=== PATIENT | female | born 1950 | race Two or more races ===

== ENCOUNTER 2025-07-23 03:14 | Emergency (ER) | payer MEDICARE ==
[~2025-07-23] VITALS: Ht 149.9 cm; Wt 51.0 kg
[~2025-07-23 03:14] MED LIST: ALB0.5UD IH; ALBU8HFA INH; METO50TA16 PO; MULT-1085 PO; PANT-47 PO; ZINC57OI3 TOP
--- NOTE | 2025-07-23 03:24 | Physician Documentation ---
History of Present Illness General Stated Complaint: TRANSFER A ALS Time Seen by MD: 03:18 History of Present Illness Initial Comments The patient is a 74-year-old female who was recently admitted to our facility and then transferred to [facility] for respiratory failure. The patient was treated with antibiotics and our facility and also had a troponin elevation. Patient was on the ventilator and became difficult to ventilate with oxygen saturations dropping into the 60s and requiring suction during this period of time the patient became verbally unresponsive hand somewhat catatonic. This episode lasted approximately 20 minutes. The patient has since regained consciousness she is following simple commands and was brought to the emergency room by EMS for further evaluation. Medication Reconciliation Allergies: Coded Allergies: No Known Allergies (Unverified , 07/19/25) Scheduled Metoprolol Tartrate (Metoprolol Tartrate), 0.5 TAB PO Q12H, (Reported) Multivitamin (Multi Vitamin Daily), 1 TAB PO DAILY, (Reported) Pantoprazole Sodium (PROTONIX tablet), 1 TAB PO DAILY, (Reported) Scheduled PRN Albuterol Sulfate Nebs* (Proventil Nebs*), 2.5 MG IH Q8H PRN for SOB or wheezing, (Reported) Zinc Oxide (Desitin), 1 APPLIC TOP DAILY PRN for SORES, (Reported) albuterol inhaler (Pro-Air Inhaler), 2 PUFFS INH Q4HPRN PRN for wheezing, (Reported) Discontinued Medications Acetylcysteine (H-Rlvrvk-r-Cysteine), 2 CAP PO Q12H, (Reported) Discontinued Reason: patient no longer taking Diazepam* (Valium*), 1-2 TAB PO Q8H PRN for muscle spasms, (Reported) Discontinued Reason: patient no longer taking Enoxaparin Sodium* (Lovenox*), 100 MG SQ BID, (Reported) Discontinued Reason: patient no longer taking Esomeprazole Mag Trihydrate* (Nexium*), 1 CAP PO DAILY, (Reported) Discontinued Reason: patient no longer taking Ferrous Sulfate* (Ferrous Sulfate*), 1 TAB PO BID, (Reported) Discontinued Reason: patient no longer taking Hydromorphone Hcl* (Dilaudid*), 1 TAB PO Q12H PRN PRN for pain, (Reported) Discontinued Reason: patient no longer taking Ipratropium/Albuterol Sulfate (Duoneb 2.5-0.5 Mg/3 Ml Soln), 1 VIAL NEB Q12H, (Reported) Discontinued Reason: patient no longer taking Mupirocin* (Bactroban*), 1 APPLIC TOP Q8H, (Reported) Discontinued Reason: patient no longer taking Nystatin/Triamcin Cream* (Mycolog II Cream*), 1 APPLIC TOP Q12H, (Reported) Discontinued Reason: patient no longer taking levothyroxine sodium* (Synthroid*), 1 TAB PO DAILY, (Reported) Discontinued Reason: patient no longer taking Review of Systems Unable to obtain complete ROS: intubated Physical Exam Physical Exam Physical Exam VITALS: Reviewed and as above. GENERAL: Alert, mild respiratory distress HEENT: Normocephalic, atraumatic, PERRL, EOMI, dry mucosa, no erythema RESPIRATORY: Markedly diminished breath sounds with rhonchi throughout CHEST: No accessory muscle use, no retractions CV: Regular rate, rhythm, no edema, no murmur, No: JVD GI: Soft, non-tender, bowels sounds present, no rebound, guarding, or rigidity BACK: No CVA tenderness, or swelling MUSCULOSKELETAL: No deformities, no edema SKIN: Warm and dry, no rash NEURO: Moves all extremities can follows simple commands Progress Results/Orders Results/Orders Completed Orders - YING HARLEY MD Hs Troponin I W Calculations (07/23/25 07:21) Medications Received in ER Medications (Trade) Dose Ordered Sig/Liz Route PRN Reason Start Time Stop Time Status Last Admin Dose Admin (Zofran 4mg/2ml vial) 4 mg ONCE ONCE IV 07/23/25 03:55 07/23/25 04:00 DC 07/23/25 04:03 4 MG (0.9% sodium chloride (NS) 1000ml IV soln) 1,000 ml ONCE ONCE IVB 07/23/25 04:45 07/23/25 04:51 DC 07/23/25 04:55 1,000 ML Vital Signs 07/23/25 07/23/25 07/23/25 07/23/25 03:18 03:34 03:37 03:42 Temp 97.5 Pulse 65 49 52 Resp 14 24 23 B/P (MAP) 138/57 126/22 (56) Pulse Ox 100 100 100 O2 Flow Rate 15.0 FiO2 100 8/25/25 8/25/25 8/25/25 8/25/25 04:07 04:27 04:33 04:56 Temp 97.5 97.5 Pulse 59 53 Resp 24 24 B/P (MAP) 84/43 (57) 93/48 (63) Pulse Ox 100 O2 Delivery Ventilator+ O2 Flow Rate 15.0 15.0 FiO2 100 50 100 100 07/23/25 07/23/25 07/23/25 07/23/25 04:58 04:59 05:25 06:30 Temp 97.5 97.5 97.5 97.6 Pulse 47 46 50 51 Resp 24 24 24 24 B/P (MAP) 78/42 (54) 95/48 (64) 104/50 (68) 120/46 (70) Pulse Ox 94 100 100 100 O2 Flow Rate 15.0 15.0 15.0 FiO2 100 100 100 50 07/23/25 07/23/25 07/23/25 07/23/25 06:31 07:00 07:10 07:29 Pulse 51 51 50 Resp 13 24 20 20 B/P (MAP) 128/43 (71) 110/48 (68) Pulse Ox 100 100 100 FiO2 50 45 07/23/25 07/23/25 07:30 07:38 Temp 98.7 Pulse 50 50 Resp 20 13 B/P (MAP) 110/48 (68) 110/48 Pulse Ox 100 100 FiO2 40 Laboratory Tests Test 07/23/25 03:48 07/23/25 04:13 07/23/25 04:18 07/23/25 07:54 CBC Comment Sodium Level 137 Potassium Level 5.0 Chloride Level 100 Carbon Dioxide Level 35.9 H Anion Gap 1 L Blood Urea Nitrogen 21 H Creatinine 0.55 Estimated GFR/1.73 m2 > 90 BUN/Creatinine Ratio 38.2 H Glucose Level 150 H Calcium Level 8.9 Magnesium Level 2.1 Troponin I High Sensitivity 56 *H 50 Pro-B-Type Natriuretic Peptide 4319 H Albumin 3.0 L Procalcitonin 0.21 Chemistry Comments White Blood Count 6.7 Red Blood Count 2.63 L Hemoglobin 7.9 L Hematocrit 25.1 L Mean Corpuscular Volume 95.3 Mean Corpuscular Hemoglobin 30.1 Mean Corpuscular Hemoglobin Concent 31.6 L Red Cell Distribution Width 16.6 H Platelet Count 241 Mean Platelet Volume 8.8 Neutrophils (%) (Auto) 85.3 H Lymphocytes (%) (Auto) 3.6 L Monocytes (%) (Auto) 8.1 Eosinophils (%) (Auto) 2.3 Basophils (%) (Auto) 0.7 Neutrophils # (Auto) 5.7 Lymphocytes # (Auto) 0.2 L Monocytes # (Auto) 0.5 Eosinophils # (Auto) 0.2 Basophils # (Auto) 0.0 Blood Gas Specimen Type Arterial Blood Gas Puncture Site Rr O2 Saturation 99.7 H Arterial Blood pH (Temp corrected) 7.321 L Arterial Blood pCO2 (Temp correct) 59.8 H Arterial Blood pO2 (Temp corrected) 486.1 *H Arterial Blood PO2/FiO2 Ratio 4.86 Arterial Blood HCO3 30.2 H Arterial Blood Base Excess 3.3 H Arterial Blood Oxyhemoglobin 99.4 H Arterial Blood Carboxyhemoglobin 0.3 L Arterial Blood Methemoglobin 0.0 Arterial Blood Deoxyhemoglobin 0.3 Ovi Test Modified Blood Gas Hemoglobin 8.8 L Blood Gas Temperature 37.0 Blood Gas Set Respiration Rate 24 Blood Gas Modality Prvc FiO2 100.0 Blood Gas Tidal Volume 350 Blood Gas PEEP 5 Blood Gas Critical Value Called To Md padilla Troponin I High Sens Percent Delta 10 Troponin I Hi Sens Absolute Change -6 Medical Decision Making Findings The patient is 12 lead EKGs interpreted as a sinus rhythm a sinus bradycardia with a normal axis patient has marked T-wave inversions in V1 through V3 and other nonspecific ST abnormalities the impression is an abnormal EKG patient also has slight right axis deviation the EKG was interpreted by me time of the EKG was 0320 Patient's respiratory distress has resolved. Patient had a mucus plug and received suctioning. Patient needs returned to baseline now. There was no indication for admission. Patient has a mildly elevated troponin. However the patient always has elevated troponins. Patient is stable for discharge back to [facility]. Patient's initial troponin was 56 just above normal. Second troponin was 50 which is normal. Departure Impression: Primary Impression: Acute respiratory failure Qualified Codes: J96.02 - Acute respiratory failure with hypercapnia Discharge Instructions: Shortness of Breath, Adult Referrals: NO PRIMARY CARE PROVIDER (PCP) Signature Scribe Signature: . Attestation: . DEJA VASQUEZ MD Jul 23, 2025 03:24 YING HARLEY MD Jul 23, 2025 08:24
[2025-07-23 03:42] VITALS: PULSE 52; RESP 23; O2SAT 100
[2025-07-23] MEDS: ondansetron/PF 4mg/2ml inj IV ONE (04:03)
--- NOTE | 2025-07-23 04:06 | RADIOLOGY REPORT ---
CHEST RADIOGRAPH Indication: SEPSIS Technique: 1 view Comparison: DI CHEST,SINGLE VIEW on DOS: 07/22/25, DI CHEST,SINGLE VIEW on DOS: 07/19/25 FINDINGS: Lines and Tubes: Unchanged tracheostomy tube. Lungs/Pleura: Persistent near-complete opacification of the right chest with persistent cystic appear ing lucencies. Similar mixed opacities throughout the left lung. No pneumothorax or large pleural e ffusion. Cardiomediastinum: Obscured without evident change. Other: No other change. IMPRESSION: 1. No significant change from the previous day. Persistent near complete right lung opacification.
[2025-07-23 04:22] LABS: CREATININE 0.55 MG/DL (0.40-0.90); PRO BRAIN NATRIURETIC PEPTIDE 4319 PG/ML (0-125); TOTAL CARBON DIOXIDE 35.9 MMOL/L (24-32); eCRCL 62 ML/MIN; eGFR > 90 ML/MIN
[2025-07-23 04:22] LABS: ABG BASE EXCESS 3.3 mmol/L (-2.0-3.0); ABG HCO3 30.2 mmol/L (21.0-28.0); ABG OXYGEN SATURATION 99.7 % (94.0-98.0); ABG PCO2 (T) 59.8 mmHg (32.0-45.0); ABG PH (T) 7.321 (7.350-7.450); ABG PO2 (T) 486.1 mmHg (83.0-108.0); ALLEN'S TEST Modified; FCOHb 0.3 % (0.5-1.5); FHHb 0.3 % (0.0-5.0); FIO2 100.0 mmHg/%; FMetHb 0.0 % (0.0-1.5); FO2Hb 99.4 % (94.0-98.0); MODE PRVC; PATIENT TEMPERATURE 37.0; PEEP 5 cm H2O; RESPIRATORY RATE 24 b/min; TIDAL VOLUME 350 mL; TOTAL HEMOGLOBIN 8.8 G/dl (12.0-16.0)
[2025-07-23 04:45] LABS: MEAN PLATELET VOLUME 8.8 FL (7.4-10.4); RED CELL DISTRIBUTION WIDTH 16.6 % (11.5-14.5)
[2025-07-23] MEDS: normal saline 1000ML IV soln IVB ONE (04:55)
--- NOTE | 2025-07-23 05:44 | ELECTROCARDIOGRAPH REPORT ---
[facility] Test Date: 2025-07-23 Test Time: 03:20:55 Pat Name: CLAUDIA LINK Department: EMERGENCY ROOM Room: Gender: F [employer] Machine Operator: : 1950 Requested By: DEJA VASQUEZ Order Number: [id number] Reading MD: Measurements Intervals [place] Rate: 58 P: -49 TX: 213 QRS: 107 QRSD: 96 T: 56 QT: 456 QTc: 448 Interpretive Statements Sinus or ectopic atrial bradycardia Borderline prolonged TX interval Right axis deviation Abnormal T, probable ischemia, anterior leads Please click the below link to view image of tracing.
[2025-07-23 07:10] VITALS: PULSE 51; RESP 20; O2SAT 100
[2025-07-23 07:38] VITALS: BP 110/48; PULSE 50; RESP 13; TEMP 98.7; O2SAT 100
== END 2025-07-23 08:37 ==
LOC: ER 03:15
DX: J96.00 Acute respiratory failure, unspecified whether with hypoxia or hypercapnia (principal); Z79.899 Other long term (current) drug therapy
CPT/HCPCS: 36415; 36600; 71045; 80048; 82803; 83735; 83880; 84145; 84484; 85018; 85025; 87070; 93005; 96361; 96374; 99285; J2405; J7030; 94002; 94003; 94760

== ENCOUNTER 2025-07-24 08:33 | Emergency (ER) | payer MEDICARE ==
[~2025-07-24] VITALS: Ht 160 cm; Wt 39.1 kg
--- NOTE | 2025-07-24 08:51 | Physician Documentation ---
History of Present Illness ~ Chief Complaint: Abnormal Lab(s) Stated Complaint: ALOC Time Seen by MD: 08:39 HPI 74-year-old female, brought in by EMS from a care facility, with altered mentation and an abnormal ABG The patient reportedly has a trach and is vent dependent. She was altered earlier, and they did an ABG that showed she was retaining CO2. Reportedly has been here in the hospital recently for an NSTEMI, and then was here yesterday with similar symptoms but was treated and discharged. Here in the ED, the patient does appear awake, and attempts to answer my questions. She is on a ventilator. History is somewhat limited at this time Medication Reconciliation Allergies: Coded Allergies: No Known Allergies (Unverified , 07/24/25) Scheduled Metoprolol Tartrate (Metoprolol Tartrate), 0.5 TAB PO Q12H, (Reported) Multivitamin (Multi Vitamin Daily), 1 TAB PO DAILY, (Reported) Pantoprazole Sodium (PROTONIX tablet), 1 TAB PO DAILY, (Reported) Scheduled PRN Albuterol Sulfate Nebs* (Proventil Nebs*), 2.5 MG IH Q8H PRN for SOB or wheezing, (Reported) Zinc Oxide (Desitin), 1 APPLIC TOP DAILY PRN for SORES, (Reported) albuterol inhaler (Pro-Air Inhaler), 2 PUFFS INH Q4HPRN PRN for wheezing, (Reported) Discontinued Medications Acetylcysteine (F-Hedjyj-c-Cysteine), 2 CAP PO Q12H, (Reported) Discontinued Reason: patient no longer taking Diazepam* (Valium*), 1-2 TAB PO Q8H PRN for muscle spasms, (Reported) Discontinued Reason: patient no longer taking Enoxaparin Sodium* (Lovenox*), 100 MG SQ BID, (Reported) Discontinued Reason: patient no longer taking Esomeprazole Mag Trihydrate* (Nexium*), 1 CAP PO DAILY, (Reported) Discontinued Reason: patient no longer taking Ferrous Sulfate* (Ferrous Sulfate*), 1 TAB PO BID, (Reported) Discontinued Reason: patient no longer taking Hydromorphone Hcl* (Dilaudid*), 1 TAB PO Q12H PRN PRN for pain, (Reported) Discontinued Reason: patient no longer taking Ipratropium/Albuterol Sulfate (Duoneb 2.5-0.5 Mg/3 Ml Soln), 1 VIAL NEB Q12H, (Reported) Discontinued Reason: patient no longer taking Mupirocin* (Bactroban*), 1 APPLIC TOP Q8H, (Reported) Discontinued Reason: patient no longer taking Nystatin/Triamcin Cream* (Mycolog II Cream*), 1 APPLIC TOP Q12H, (Reported) Discontinued Reason: patient no longer taking levothyroxine sodium* (Synthroid*), 1 TAB PO DAILY, (Reported) Discontinued Reason: patient no longer taking Past Medical History Patient History: Patient reports no known family medical history. Review of Systems Unable to obtain complete ROS: other (Clinical condition and ventilator) Physical Exam Vital Signs: Temperature: 98.2, Source: Oral, Heart Rate: 57, Respiratory Rate: 13, BP: 109/46, Pulse Oximetry: 100, Weight: 39.100 Physical Exam General: This is a thin chronically ill-appearing older female with a trach and ventilator, sitting in bed with her eyes open HEENT: Atraumatic, oropharynx appears dry Neck: Trach is in place, appears functional Heart: Regular rate and rhythm, normal-appearing peripheral perfusion Lungs: Coarse breath sounds, mostly in the upper airway, oxygen saturations 100%, on the ventilator Neuro: Awake, eyes are open, follows simple commands and answer simple questions Progress Results/Orders Results/Orders Orders - SULAIMAN COKER MD Urinalysis, Cult If Indicated (07/24/25 08:41) Chest,Single View (07/24/25 08:41) Monitor (07/24/25 08:41) Saline Lock (07/24/25 08:41) Abg (Arterial Blood Gas) (07/24/25 ) Ventilator Settings (07/24/25 ) Completed Orders - SULAIMAN COKER MD Cbc/Diff (07/24/25 08:41) Chest,Single View (07/24/25 08:41) Electrocardiogram (07/24/25 08:41) BMP (07/24/25 08:41) Medications Received in ER Medications (Trade) Dose Ordered Sig/Liz Route PRN Reason Start Time Stop Time Status Last Admin Dose Admin (Lasix inj) 40 mg ONCE ONCE IV 07/24/25 10:55 07/24/25 10:56 DC 07/24/25 10:59 40 MG Vital Signs 07/24/25 07/24/25 07/24/25 07/24/25 08:34 08:45 08:54 09:00 Temp 98.2 Pulse 57 55 Resp 13 18 B/P (MAP) 109/46 Pulse Ox 100 100 100 O2 Delivery Ventilator+ FiO2 50 40 07/24/25 07/24/25 07/24/25 07/24/25 09:02 09:15 09:30 09:45 Temp 98.2 98.2 98.2 98.2 Pulse 55 55 51 49 Resp 18 16 12 11 B/P (MAP) 109/51 (70) 109/46 (67) 97/48 (64) 87/42 (57) Pulse Ox 100 100 100 100 FiO2 50 50 50 50 07/24/25 07/24/25 07/24/25 07/24/25 10:00 10:15 10:30 10:45 Temp 98.2 98.2 98.2 98.2 Pulse 49 52 52 51 Resp 10 7 7 6 B/P (MAP) 85/37 (53) 105/36 (59) 111/52 (71) 106/39 (61) Pulse Ox 100 100 100 100 FiO2 50 50 50 50 07/24/25 07/24/25 07/24/25 07/24/25 10:45 11:21 12:50 13:20 Temp 98.2 98.2 Pulse 53 54 55 55 Resp 25 10 10 25 B/P (MAP) 118/55 108/53 (71) Pulse Ox 100 100 100 99 FiO2 40 50 40 Laboratory Tests Test 07/24/25 09:05 07/24/25 09:17 07/24/25 10:58 White Blood Count 7.6 Red Blood Count 2.54 L Hemoglobin 8.2 L Hematocrit 24.5 L Mean Corpuscular Volume 96.6 Mean Corpuscular Hemoglobin 32.2 H Mean Corpuscular Hemoglobin Concent 33.3 Red Cell Distribution Width 16.9 H Platelet Count 224 Mean Platelet Volume 8.3 Neutrophils (%) (Auto) 86.2 H Lymphocytes (%) (Auto) 3.8 L Monocytes (%) (Auto) 8.9 Eosinophils (%) (Auto) 0.6 Basophils (%) (Auto) 0.5 Neutrophils # (Auto) 6.5 Lymphocytes # (Auto) 0.3 L Monocytes # (Auto) 0.7 Eosinophils # (Auto) 0.0 Basophils # (Auto) 0.0 CBC Comment Sodium Level 138 Potassium Level 4.7 Chloride Level 100 Carbon Dioxide Level 34.6 H Anion Gap 3 L Blood Urea Nitrogen 30 H Creatinine 0.63 Estimated GFR/1.73 m2 > 90 BUN/Creatinine Ratio 47.6 H Glucose Level 139 H Calcium Level 9.2 Albumin 2.8 L Chemistry Comments Blood Gas Specimen Type Arterial Arterial Blood Gas Puncture Site Lb Lr O2 Saturation 94.4 96.9 Arterial Blood pH (Temp corrected) 7.280 L 7.364 Arterial Blood pCO2 (Temp correct) 68.5 *H 58.5 H Arterial Blood pO2 (Temp corrected) 74.8 L 84.6 Arterial Blood PO2/FiO2 Ratio 1.90 2.14 Arterial Blood HCO3 31.5 H 32.7 H Arterial Blood Base Excess 3.8 H 6.3 H Arterial Blood Oxyhemoglobin 93.3 L 95.6 Arterial Blood Carboxyhemoglobin 1.1 1.3 Arterial Blood Methemoglobin 0.1 0.0 Arterial Blood Deoxyhemoglobin 5.5 H 3.1 Ovi Test Na Positive Blood Gas Hemoglobin 8.5 L 8.1 L Blood Gas Temperature 36.8 36.8 Blood Gas Set Respiration Rate 18 25 Blood Gas Modality Vent prvc vent prvc FiO2 40.0 40.0 Blood Gas Tidal Volume 300 250 Blood Gas PEEP 5 5 Blood Gas Critical Value Called To Dr coker EKG/XRAY/CT/US/VASC/MRI EKG : Additional Comment I personally interpreted the EKG and this shows: Sinus bradycardia, rate 51, QTC 414, T-wave inversion in the anterior leads Chest X-Ray : Additional Comments I personally reviewed the x-ray, and it shows: lung opacification, that appears similar to previous, no significant acute changes, no pneumothorax Consults/PCP Consults/PCP : Additional Comment Consult: Spoke to the ICU physician, who was also the physician for the care facility where the patient was sent in from. He came and evaluated the patient and recommends discharge with vent setting changes. Medical Decision Making Additional Information The patient presents with reported altered mental status and an abnormal ABG. Here in the ED she does appear somewhat sedated, and her presentation is consistent with hypercapnia. Increase ventilation was performed through the ventilator, and her blood gases improved. Her workup does not show no dangerous cause for her symptoms. She was evaluated by the ICU physician who is also her facilities directing doctor. Plan is for discharge with vent setting changes. Departure Time of Disposition: 11:09 Disposition: [facility] Impression: Primary Impression: CO2 retention Condition: Improved Referrals: NO PRIMARY CARE PROVIDER (PCP) Education Educated: Patient Educated regarding: treatment, need for follow up Signature Scribe Signature: na Attestation: SULAIMAN Coles MD Jul 24, 2025 08:51
[2025-07-24 08:54] VITALS: BP_DIAS 46; PULSE 55; RESP 18; O2SAT 100
[2025-07-24 09:14] LABS: MEAN PLATELET VOLUME 8.3 FL (7.4-10.4); RED CELL DISTRIBUTION WIDTH 16.9 % (11.5-14.5)
--- NOTE | 2025-07-24 09:20 | RADIOLOGY REPORT ---
EXAM: DI CHEST,SINGLE VIEW Indication: abnormal ABG Technique: 1 view Comparison: DI CHEST,SINGLE VIEW on DOS: 07/23/25, DI CHEST,SINGLE VIEW on DOS: 07/22/25, CT CT CHEST o n DOS: 07/19/25, DI CHEST,SINGLE VIEW on DOS: 07/19/25, DI CHEST,SINGLE VIEW on DOS: 07/23/25 FINDINGS: Lines and Tubes: Unchanged tracheostomy tube. Lungs/Pleura: Persistent near-complete opacification of the right chest with persistent cystic appear ing lucencies. Similar mixed opacities throughout the left lung. No pneumothorax or large pleural e ffusion. Cardiomediastinum: Obscured without evident change. Other: No other change. IMPRESSION: 1. No significant change from the previous day. Persistent near complete right lung opacification.
[2025-07-24 09:22] LABS: ABG BASE EXCESS 3.8 mmol/L (-2.0-3.0); ABG HCO3 31.5 mmol/L (21.0-28.0); ABG OXYGEN SATURATION 94.4 % (94.0-98.0); ABG PCO2 (T) 68.5 mmHg (32.0-45.0); ABG PH (T) 7.280 (7.350-7.450); ABG PO2 (T) 74.8 mmHg (83.0-108.0); FCOHb 1.1 % (0.5-1.5); FHHb 5.5 % (0.0-5.0); FIO2 40.0 mmHg/%; FMetHb 0.1 % (0.0-1.5); FO2Hb 93.3 % (94.0-98.0); MODE VENT prvc; PATIENT TEMPERATURE 36.8; PEEP 5 cm H2O; RESPIRATORY RATE 18 b/min; TIDAL VOLUME 300 mL; TOTAL HEMOGLOBIN 8.5 G/dl (12.0-16.0)
[2025-07-24 09:35] LABS: CREATININE 0.63 MG/DL (0.40-0.90); TOTAL CARBON DIOXIDE 34.6 MMOL/L (24-32); eCRCL 49 ML/MIN; eGFR > 90 ML/MIN
--- NOTE | 2025-07-24 09:36 | ELECTROCARDIOGRAPH REPORT ---
[facility] Test Date: 2025-07-24 Test Time: 09:34:16 Pat Name: CLAUDIA PEREZ Department: [facility] Patient ID: [facility]-[id number] Room: Gender: F Student Affairs Dean: HEATHER : 1950 Requested By: SULAIMAN GLASGOW Order Number: [id number] Reading MD: Measurements Intervals [place] Rate: 51 P: 33 HI: 195 QRS: 83 QRSD: 88 T: 57 QT: 449 QTc: 414 Interpretive Statements Sinus bradycardia Borderline right axis deviation Abnormal T, consider ischemia, anterior leads Please click the below link to view image of tracing.
[2025-07-24 10:45] VITALS: BP 106/39; PULSE 53; RESP 25; O2SAT 100
[2025-07-24 11:02] LABS: ABG BASE EXCESS 6.3 mmol/L (-2.0-3.0); ABG HCO3 32.7 mmol/L (21.0-28.0); ABG OXYGEN SATURATION 96.9 % (94.0-98.0); ABG PCO2 (T) 58.5 mmHg (32.0-45.0); ABG PH (T) 7.364 (7.350-7.450); ABG PO2 (T) 84.6 mmHg (83.0-108.0); ALLEN'S TEST POSITIVE; FCOHb 1.3 % (0.5-1.5); FHHb 3.1 % (0.0-5.0); FIO2 40.0 mmHg/%; FMetHb 0.0 % (0.0-1.5); FO2Hb 95.6 % (94.0-98.0); MODE vent prvc; PATIENT TEMPERATURE 36.8; PEEP 5 cm H2O; RESPIRATORY RATE 25 b/min; TIDAL VOLUME 250 mL; TOTAL HEMOGLOBIN 8.1 G/dl (12.0-16.0)
[2025-07-24 12:50] VITALS: TEMP 98.2
[2025-07-24 13:20] VITALS: BP 115/46; PULSE 55; RESP 25; O2SAT 99
--- NOTE | 2025-07-24 15:19 | CONSULTATION REPORT ---
Consult Providers to CC ~ History of Present Illness Reason for Admit\Complaint: Altered level of consciousness caused by CO2 retention History of Present Illness 74-year-old female well known to our service here at [facility]. I was called this morning by her nurses at [facility] because the patient had become altered. An arterial blood gas analysis revealed a pH of 7.0 with a pCO2 of around 93. I advised the patient to be transferred to [facility]. The patient was on pressure control ventilation at that time. An initial arterial blood gas analysis revealed improvement with the patient's pCO2 levels and PH down to a pH of 7.28 and a pCO2 level 68.5 on assist-control mode of ventilation. I further adjusted the patient's ventilator and the patient's PH it improves with 7.36 and pCO2 declined to 58. She now had a well-compensated respiratory acidosis. New line the patient's chest x-ray revealed volume loss in the right side and some pulmonary infiltrates in the left lung. Allergies: Coded Allergies: No Known Allergies (Unverified , 07/24/25) Home Medications Home Medications Active Reported Desitin (Zinc Oxide) 13 % Cream..g. 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 volume loss on the right side, respiratory failure,Chronic respiratory failure , Past Surgical History Surgical History Comment PEG tube placement Tracheostomy Clipping of the vessel in the chest per daughter (VATS ?) Family History Family History: Patient reports no known family medical history. Exam Vitals: Vital Signs Date Time Temp Pulse Resp B/P (MAP) Pulse Ox O2 Delivery O2 Flow Rate FiO2 07/24/25 13:20 55 25 99 40 07/24/25 12:50 98.2 108/53 (71) 07/24/25 08:45 Ventilator+ General: No apparent distress, arousable and interactive during my visit in the emergency room. HEENT: N/C/AT, PERRL, EOMI Neck: Tracheostomy in place and connected to the ventilator. Supple with no jugular venous distention and no lymphadenopathy. Chest: Symmetric expansion bilaterally Cardiovascular: Normal S1 and S2, without any S3-S4 gallop. Abdomen: Nondistended with normoactive bowel sounds soft nontender no organomegaly Extremities: No cyanosis, no clubbing and no edema. Central Nervous System: No focal neurological deficits. Musculoskeletal: No obvious deformities. Diagnostic Data Last Recorded Lab Results: 07/24/2590407/24/25 09 Additional Plan Acute on chronic respiratory acidosis that could have been caused by inadequate ventilation. Patient was on pressure control ventilation. N Patient will need to continue on AC/VC mode Continue antibiotic therapy with linezolid and cefepime. Patient may return to [facility] today. They will not be any need for admission to [facility]. CARLOS ROMERO MD Jul 24, 2025 15:19
== END 2025-07-24 14:11 ==
LOC: ER 08:33
DX: E87.29 Other acidosis (principal); Z93.0 Tracheostomy status; Z79.899 Other long term (current) drug therapy
CPT/HCPCS: 36415; 36600; 71045; 80048; 82803; 85018; 85025; 93005; 96374; 99285; J1938; 94002; 94760